=== PATIENT | male | born 1945 | race Caucasian/White ===

== ENCOUNTER 2019-08-07 15:01 | Emergency (ER) | payer MEDICARE, BC ==
[~2019-08-07] VITALS: Ht 182.9 cm; Wt 99.8 kg
--- NOTE | 2019-08-07 15:30 | NUR ---
patient came in to the er c/o worsening cough, chills, and weakness x 2 weeks, on room air, breathing evenly and unlabored. connected to the monitor and pulse ox. kept comfortable. will continue to monitor accordingly.
[2019-08-07] MEDS ORDERED: PREG100C55 PO (16:18)
[2019-08-07] MEDS ORDERED: HYDR-3205 PO (16:18)
[2019-08-07] MEDS ORDERED: ALBU18HF2 IH (16:18)
[2019-08-07] MEDS ORDERED: ATOR10TA PO (16:18)
[2019-08-07] MEDS ORDERED: METF-442 PO (16:18)
--- NOTE | 2019-08-07 16:28 | NUR ---
RSV, INfluenza, covid collected and sent to lab
[2019-08-07 16:41] LABS: BASOPHILS % (AUTO) 0.9 % (0.0-2.0); EOSINOPHILS % (AUTO) 1.7 % (0.0-6.0); HEMATOCRIT 41 % (39-51); LYMPHOCYTES % (AUTO) 19.4 % (20.0-44.0); MEAN CORPUSCULAR HGB CONC 34 g/dl (31.0-36.0); MEAN CORPUSCULAR VOLUME 95 fL (80-96); MONOCYTES # (AUTO) 0.4 /CMM (0.1-1.30); MONOCYTES % (AUTO) 7.7 % (2.0-12.0); NEUTROPHILS # (AUTO) 3.6 /CMM (1.8-8.9); NEUTROPHILS % (AUTO) 70.3 % (43.0-81.0); PLATELET COUNT (AUTO) 158 /CMM (150-450); RED BLOOD CELL COUNT(AUTO) 4.34 MIL/uL (4.5-6.0); WHITE BLOOD COUNT (AUTO) 5.2 K/uL (4.3-11.0)
[2019-08-07 16:56] LABS: CALCIUM, SERUM 9.3 mg/dL (8.5-10.1); CARBON DIOXIDE 28 mmol/L (21-32); CHLORIDE 105 mmol/L (98-107); CREATININE 1.6 mg/dL (0.6-1.3); GLUCOSE 130 mg/dL (74-106); POTASSIUM 4.5 mmol/L (3.5-5.1); SODIUM SERUM 141 mmol/L (136-145); UREA NITROGEN, BLOOD 27 mg/dL (7-18)
[2019-08-07 17:03] LABS: ALANINE AMINOTRANSFERASE 25 U/L (12-78); ALBUMIN 3.7 g/dL (3.4-5.0); ALKALINE PHOSPHATASE 78 U/L (46-116); ASPARTATE AMINOTRANSFERASE 13 U/L (15-37); BILIRUBIN,DIRECT 0.1 mg/dL (0.0-0.2); BILIRUBIN,TOTAL 0.3 mg/dL (0.2-1.0); TOTAL PROTEIN, SERUM 7.3 g/dL (6.4-8.2)
[2019-08-07 18:11] VITALS: BP 145/81
--- NOTE | 2019-08-07 18:11 | NUR ---
Patient discharged to home in stable condition. Written and verbal after care instructions given. Patient verbalizes understanding of instruction.IV removed. Catheter intact and site benign. Pressure and 4x4 applied to site. No bleeding noted.
== END 2019-08-07 18:11 | disposition home or self-care (01) ==
LOC: ER 15:13
DX: J06.9 Acute upper respiratory infection, unspecified (principal); Z20.828 Contact with and (suspected) exposure to other viral communicable diseases; E11.9 Type 2 diabetes mellitus without complications; J45.909 Unspecified asthma, uncomplicated; Z98.890 Other specified postprocedural states; Z90.89 Acquired absence of other organs; Z88.5 Allergy status to narcotic agent; Z79.899 Other long term (current) drug therapy; Z79.84 Long term (current) use of oral hypoglycemic drugs
CPT/HCPCS: 0099U; 36415; 71045; 80048; 80076; 84145; 84484; 85025; 87040 ×2; 87635; 87804 ×2; 99284

== ENCOUNTER 2021-11-04 13:04 | Emergency (ER) | payer MEDICARE, BC ==
[~2021-11-04] VITALS: Ht 182.9 cm; Wt 90.7 kg
[~2021-11-04 13:04] MED LIST: ALBU18HF2 IH; ATOR10TA PO; HYDR-4277 PO; METF-442 PO; PREG-59 PO
[2021-11-04] MEDS ORDERED: IBUP-1955 PO (14:49)
[2021-11-04] MEDS ORDERED: BACI/NEOM/POLY B OINT PKT 1 UDPKT PACKET TP ONE (15:00)
[2021-11-04 15:05] VITALS: BP 138/78
--- NOTE | 2021-11-04 15:05 | NUR ---
Patient discharged to home in stable condition. Written and verbal after care instructions given. Patient verbalizes understanding of instruction.
== END 2021-11-04 15:06 | disposition home or self-care (01) ==
LOC: ER 13:34
DX: S93.601A Unspecified sprain of right foot, initial encounter (principal); S80.811A Abrasion, right lower leg, initial encounter; I10 Essential (primary) hypertension; E78.5 Hyperlipidemia, unspecified; J45.909 Unspecified asthma, uncomplicated; E11.9 Type 2 diabetes mellitus without complications; Z88.8 Allergy status to other drugs, medicaments and biological substances; Z79.899 Other long term (current) drug therapy; W55.12XA Struck by horse, initial encounter; Y93.89 Activity, other specified; Y92.89 Other specified places as the place of occurrence of the external cause; Y99.8 Other external cause status
CPT/HCPCS: 73630-TC